=== PATIENT | female | born 1975 | race Caucasian/White ===

== ENCOUNTER 2022-06-16 08:24 | Emergency (ER) | payer MEDICAID, SELFPAY ==
[2022-06-16 08:26] VITALS: BP 129/86; PULSE 71; RESP 16; TEMP 36.6; O2SAT 97; BMI 23.7
--- NOTE | 2022-06-16 08:30 | NURSING ---
NO OLD EKGS
--- NOTE | 2022-06-16 08:36 | EKG12_ITS ---
Test Reason : cp Blood Pressure : / mmHG Vent. Rate : 070 BPM Atrial Rate : 070 BPM P-R Int : 140 ms QRS Dur : 094 ms QT Int : 402 ms P-R-T Axes : 068 062 045 degrees QTc Int : 434 ms Normal sinus rhythm Nonspecific T wave abnormality Abnormal ECG Confirmed by LOIDA STARK, AUTUMN ([id number]), editor farm journal KUSUM SCHRADER ([id number]) on 06/18/2022 9:37:17 AM Referred By: Bret Confirmed By:AUTUMN MARISCAL MD
--- NOTE | 2022-06-16 08:45 | RAD_ITS ---
STUDY: X-RAY CHEST REASON FOR EXAM: Female, 46 years old. Chest pain TECHNIQUE: PA and lateral views of the chest were obtained. COMPARISON: None. FINDINGS: The lungs are clear and expanded. There is no demonstrated pleural abnormality. Normal size heart. Normal mediastinum and jhonatan. Normal visualized pulmonary arteries. Normal visualized aortic arch and descending thoracic aorta. Normal visualized thoracic spine. Normal visualized ribs, clavicles, and shoulders. There is no demonstrated abnormality of the visualized soft tissue structures of the upper abdomen. RAD/Chest PA and Lateral IMPRESSION: Normal x-ray examination of the chest. Electronically Signed: Aravind Cordova MD at 9:48 EDT ,
[2022-06-16 08:50] LABS: Absolute Lymphocyte Count 2.52 X10^3/uL (0.83-4.51); Absolute Neutrophil Count 8.1 X10^3/uL (2.0-7.7); Basophil# 0.03 X10^3/uL; Basophil% 0.3 % (0-1); Eosinophil# 0.03 X10^3/uL; Eosinophils% 0.3 % (0-5); Hemoglobin 14.3 g/dL (12.0-15.0); Lymphocyte # 2.52 X10^3/ul (0.83-4.51); Lymphocyte % 21.9 % (19-41); Mean Corp Hgb Conc 34.9 g/dL (32-36); Mean Corpuscular Hgb 31.9 pg (27.0-32.0); Mean Corpuscular Volume 91.5 fL (81-99); Mean Platelet Vol. 11.8 fl (6.2-12.0); Monocyte% 6.9 % (0-10); NRBC Flagged by Analyzer 0 % (0-5); Neutrophil % 70.2 % (47-70); Platelet Count 265 K/mm3 (150-450); RBC Distribution Width SD 39.9 fl (35.1-43.9); Red Blood Count 4.48 M/mm3 (4.2-5.4); White Blood Count 11.5 K/mm3 (4.4-11.0)
--- NOTE | 2022-06-16 08:56 | EDS_ITS ---
HPI History of Present Illness Chief Complaint: Dizziness Detail of Chief Complaint: Chest pressure, dyspnea on exertion Informant: patient Onset/Context/Timing Onset: Days (Onset 3 days ago) Activity at onset: sudden Timing: Continuous and Waxes and wanes Quality: Positive for Pressure Location: Substernal Current Severity: Mild Maximum Severity: Severe Worsened By: Exertion; Not Worsened By Movement of Arm, Movement of Torso, Eating, Palpation, Breathing or Coughing Relieved By: Nothing Associated Symptoms: Positive for Dyspnea; Negative for Nausea, Vomiting, Diaphoresis, Cough, Fever, Lightheadedness, Acid Reflux or Palpitations Narrative Narrative: Patient is a 46-year-old woman with no significant past medical history who presents with midsternal chest pressure that started 3 days ago. The pain is been constant. The pain does wax and wane in its intensity. The pressure does not radiate. There is no associated symptoms. There is no family history of co ronary disease. Patient has no risk factors for coronary disease. She states she was diagnosed with COVID 3 to 4 weeks ago. She denies orthopnea or PND. She denies history of VTE. She denies leg pain, swelling or discoloration. She denies headache, ocular, visual or auditory symptoms. She states she had a headache for 3 days and her symptoms resolved. She has since had a negative COVID test. She denies intolerance to greasy or fried foods. Prior Similar Symptoms: No Recent Illness/Hospitalization: No CVD Risk Factors: Negative for Hypertension, Diabetes, Hypercholesterolemia, Family History 1' </=55 or Smoking PE Risk Factors: Negative for Recent Travel/Surgery, Recent Immobilization, Prior DVT or PE, Cancer or OCP + Smoking + >/=35 TAD Risk Factors: Negative for Marfan's Syndrome, Hypertension or Family History [facility] Medical History (Updated 06/16/22 @ 10:[address] Miguel Angel Queen MD) Fibromyalgia Liver cyst Medical History no medical history no medical history Home Medications albuterol 90 mcg/actuation aerosol inhaler mcg inhalation 06/16/22 [History Last Taken Unknown] cetirizine 5 mg tablet 5 mg PO DAILY 06/16/22 [History Last Taken Unknown] nabumetone 500 mg tablet 500 mg PO DAILY 06/16/22 [History Last Taken Unknown] potassium chloride 20 mEq/15 mL oral liquid 20 meq (15 mL) PO BID #180 mL 06/16/22 [Rx Last Taken Unknown] tramadol 50 mg tablet 50 mg PO Q6H PRN Pain, Moderate 06/16/22 [History Last Taken Unknown] Allergy/AdvReac Type Severity Reaction Status Date / Time iodine Allergy PT UNSURE Verified 06/16/22 08:26 OF REACTION Penicillins [PCN] Allergy PT UNSURE Verified 06/16/22 08:26 OF REACTION SEAFOOD Allergy PT UNSURE Uncoded 06/16/22 08:26 OF REACTION Surgical History (Updated 06/16/22 @ 09:14 by Blaire Corado) History of cholecystectomy History of partial hysterectomy History of surgery of liver Surgical History no surgical history no surgical history Social History (Updated 06/16/22 @ 08:[address] Miguel Angel Queen MD) household members: spouse and children Smoking Status: Never smoker substance use type: marijuana and other details: Use of medical marijuana for migraines and fibromyalgia ROS ROS ED Constitutional Constitutional ED: Denies chills, fever(s), subjective, sweats or weight loss Eyes Eyes: Denies blurry vision, change in vision or diplopia ENT ENT ED: Denies ear pain, rhinorrhea or sore throat Cardiovascular Cardiovascular: Reports as per HPI; Denies orthopnea, palpitations or paroxysmal nocturnal dyspnea Respiratory/Chest Respiratory/Chest: Reports dyspnea and dyspnea on exertion; Denies cough, orthopnea or paroxysmal nocturnal dyspnea Gastrointestinal Gastrointestinal: Denies abdominal pain, constipation, diarrhea, melena, nausea or vomiting Genitourinary Genitourinary ED: Denies dysuria, hematuria or urinary frequency Musculoskeletal Musculoskeletal: Denies arthralgias, back pain, myalgias or neck pain Integumentary Denies abscess, Abrasions or rash Neurologic Neurologic: Denies headache(s), paresthesias or weakness Psychiatric Psychiatric: Denies anxiety or depression Endocrine Endocrinology: Denies cold intolerance, heat intolerance, polydipsia, polyphagia or polyuria Hematologic/Lymphatic Hematologic/Lymphatic: Denies easy bleeding, easy bruising or lymphadenopathy EXAM Physical Exam Const Vital Signs: 06/16/22 08:26 06/16/22 09:04 Temperature 97.9 F Temperature Source Temporal Pulse Rate 71 Respiratory Rate 16 Respiratory Effort Normal Blood Pressure 129/86 H Blood Pressure Mean 100 Pulse Ox 97 Oxygen Delivery Method Room Air Positive well nourished and well developed General Appearance ED: well developed and NAD; Negative for pallor HEENT Reports TM's clear and moist mucous membranes HEENT Narrative: Ears normal. Nares patent. There is no discharge noted. Uvula midline. Posterior pharynx out erythema or exudate. Tympanic Membrane ED: Yes TM's clear Eyes PERRL and EOMs intact bilaterally General Eye ED: Negative for pale conjunctiva or scleral icterus Neck no lymphadenopathy, supple and no JVD Chest Wall inspection of chest normal and palpation of chest normal Chest Narrative: Patient does have reproducible bilateral chest pain with palpation. There is no crepitus or subcutaneous air appreciated. Resp normal respiratory effort and clear to auscultation bilaterally Cardio regular rate, regular rhythm, S1 normal heart sound, S2 normal heart sound and no murmurs GI normal to inspection, nondistended, normoactive bowel sounds, soft to palpation, non-tender, non-distended and no masses; Negative for hepatosplenomegaly Back/Spine no CVA tenderness and no thoracic nor lumbar tenderness Extremity normal to inspection Extremity Narrative: There is no asymmetry, swelling, discoloration, leg vein distention, palpable cords or tenderness along the distribution of the deep venous system. General Extremety ED: Negative for edema, pulses abnormal or tenderness General Extremity: Negative for edema or pulses abnormal Neuro oriented x3, CN's II-XII intact bilaterally, no sensory deficits noted and gait normal Sensorium / Orientation: awake and alert Motor Exam: strength 5/5 throughout Psych mental status grossly normal Skin no rashes or lesions noted and no wounds General Skin Exam: Negative for jaundice or pallor MDM MDM MDM Narrative Medical decision making narrative: Patient with atypical chest pain. Patient is PERC negative. Since she has had pain for 3 continuous days described exertional dyspnea and tightness will obtain troponin. If troponin is normal with 72 hours pain will not obtain a 2- hour troponin. Will obtain EKG to assess for cardiac ischemia. CBC to rule out anemia and assess white count. Patient was informed of results. She was informed she will need to follow-up with her doctor. Questions were answered to her satisfaction Lab Data Attestation: I reviewed the patient's lab results. Lab results narrative: White count is slightly elevated 11.5 with a normal differential. This is nonspecific. Potassium is 2.8. She did receive p.o. potassium. Troponin is 4 with 72 hours of pain. This rules out cardiac cause. Labs: Laboratory Results - last 24 hr 06/16/22 06/16/22 08:40 08:40 WBC 11.5 H RBC 4.48 Hgb 14.3 Hct 41.0 MCV 91.5 MCH 31.9 MCHC 34.9 RDW Std Deviation 39.9 RDW Coeff of Patricio 12.0 Plt Count 265 MPV 11.8 Immature Gran % (Auto) 0.400 Neut % (Auto) 70.2 H Lymph % (Auto) 21.9 Wirt % (Auto) 6.9 Eos % (Auto) 0.3 Baso % (Auto) 0.3 Absolute Neuts (auto) 8.1 H Absolute Lymphs (auto) 2.52 Nucleated RBC % 0 Sodium 141 Potassium 2.8 L Chloride 106 Carbon Dioxide 26.0 Anion Gap 9 BUN 6 L Creatinine 0.82 Estim Creat Clear Calc 72.42 Est GFR (MDRD) Af Amer 97 Est GFR (MDRD) Non-Af 80 BUN/Creatinine Ratio 7.3 L Glucose 130 H Calcium 8.9 Troponin I High Sens 4 Radiography Chest X-Ray - ED: 2 View, Read by ED Physician (2 view chest x-ray is independently reviewed and interpreted by me at 0911 as negative. Cardiac silhouette and size normal. Perihilar region unremarkable. Lung parenchyma normal. Osseous trucks unremarkable.), Normal, Heart, Lungs, Mediastinum, Bony Structures and No Acute Disease Diagnostic Testing: Clinical Impression(s) from Imaging Studies Chest X-Ray 06/16/22 08:45 IMPRESSION: Normal x-ray examination of the chest. Electronically Signed: Aravind Cordova MD at 9:48 EDT , EKG Initial EKG: Attestation: I personally reviewed and interpreted this EKG as follows: Interpretation: Sinus Rhythm (Sinus rhythm with a ventricular rate of 70. [place] interval is 140 ms. QRS duration 94 ms. QT duration 202 ms. [place] is normal. Computer is reading abnormal T waves. The EKG in my opinion is normal. There is artifact and most likely this is what the computer is interpreted as nonspecific T wave ch) Discharge Plan Triage Chief Complaint: Dizziness ED Provider: Miguel Angel Queen Dx/Rx/DC Orders Clinical Impression: Chest pressure, Dyspnea on exertion, Acute hypokalemia, Acute hyperglycemia Instructions: High Blood Sugar (Hyperglycemia), ED Chest Pain, Noncardiac, ED Dyspnea, ED Hypokalemia Prescriptions: New potassium chloride 20 mEq/15 mL liquid 20 meq PO BID Qty: 180 0RF No Action cetirizine [Zyrtec] 5 mg Tablet 5 mg PO DAILY tramadol 50 mg Tablet 50 mg PO Q6H PRN (Reason: Pain, Moderate) albuterol 90 mcg/actuation Aerosol INHALATION nabumetone 500 mg Tablet 500 mg PO DAILY Primary Care Provider: EDDA KIM Referrals: [facility] Doctor,Out of [Non-Staff] - 3-5 Days Activity Restrictions/Additional Instructions: 1. Contact your doctors office for repeat blood work, blood sugar and potassium. Disposition Disposition: Home, Self Care
[2022-06-16] MEDS: Ketorolac 15 MG/ML Vial IV (09:07)
[2022-06-16 09:09] LABS: Anion Gap 9 (5-15); BUN 6 mg/dL (7-18); BUN/Creat Ratio 7.3 RATIO (10-20); Calcium,Total 8.9 mg/dL (8.5-10.1); Chloride 106 mmol/L (98-107); Creatinine, Serum 0.82 mg/dL (0.55-1.02); EST Glomerular Filtration Rate 80 mL/min (>60); Est Glom Filt Rate - Afr Amer 97 mL/min (>60); Estimated Creatinine Clearance 72.42 ml/min; Glucose 130 mg/dL (74-106); Potassium 2.8 mmol/L (3.5-5.1); Sodium Level 141 mmol/L (136-145); Troponin-I HS 4 pg/mL (3.0-54.0)
[2022-06-16] MEDS: Potassium Chloride Oral Soln 20 MEQ/15 ML UDC 40 MEQ PO (10:12)
[2022-06-16 10:22] VITALS: BP 108/72; PULSE 69; RESP 14; O2SAT 100
== END 2022-06-16 10:29 | disposition home or self-care (01) ==
PROVIDERS: Emergency Provider Emergency Medicine; Visit Provider Emergency Medicine
DX: E87.6 Hypokalemia (principal); M79.7 Fibromyalgia; Z86.16 Personal history of COVID-19; R07.89 Other chest pain; R06.09 Other forms of dyspnea; R73.9 Hyperglycemia, unspecified
CPT/HCPCS: 71046; 80048; 84484; 85025; 93005; 96374; 99285; A4216